=== PATIENT | male | born 1970 | race Caucasian/White ===

== ENCOUNTER 2017-09-19 02:00 | Observation (INO) | payer OTHER ==
[2017-09-19] MEDS ORDERED: ASPIRIN 81 MG CHEWABLE TABLET ONE (02:19)
[2017-09-19] MEDS ORDERED: CLOPIDOGREL 75 MG TABLET ONE (02:20)
[2017-09-19] MEDS ORDERED: MORPHINE 4 MG/ML SYR ONE (02:20)
[2017-09-19] MEDS ORDERED: PANTOPRAZOLE 40 MG INJ ONE (02:20)
[2017-09-19] MEDS ORDERED: NA CHLORIDE 0.9% 1,000 ML ONE (02:20)
[2017-09-19] MEDS ORDERED: HEPARIN 5000 UNIT/ML 1 ML VIAL ONE (02:24)
[2017-09-19] MEDS ORDERED: HEPARIN/D5W 25,000 UNIT/500 ML BAG IV ONE (02:25)
[2017-09-19] MEDS ORDERED: ONDANSETRON 4 MG/2 ML VIAL ONE (02:26)
[2017-09-19 02:31] LABS: Absolute Lymphocytes (CBC) 2.5 K/uL (0.7-4.9); Absolute Monocytes 0.5 K/uL (0.1-1.3); Absolute Neutrophil 2.2 K/uL (1.8-8.0); Basophils % 0.7 % (0-1.3); Eosinophils % 5.4 % (0-4.4); Hematocrit 39.9 % (39.6-49.0); Lymphocytes % 45.1 % (15.3-44.8); MCV 87.3 fL (80-100); MPV 8.2 fL (7.6-11.3); Monocytes % 9.7 % (3.3-12.3); RBC Red Blood Cell Count 4.56 M/uL (4.33-5.43)
[2017-09-19 02:35] LABS: Protime INR 1.01
[2017-09-19 03:02] LABS: Potassium 3.7 mEq/L (3.6-5.0)
[2017-09-19 03:08] LABS: Albumin 3.6 g/dL (3.2-5.5); Bilirubin Direct 0.1 mg/dL (0-0.2); Bilirubin Total 0.8 mg/dL (0.3-1.2); Magnesium 1.9 mg/dL (1.8-2.5); Protein, Total 5.8 g/dL (6.0-8.3)
--- NOTE | 2017-09-19 03:14 | ER ---
Nurse's Notes [facility] Name: Al Duffy Age: 47 yrs Sex: Male : 1970 Arrival Date: 09/19/2017 Time: 02:07 Bed 3 Private MD: Nathen Coello Diagnosis: Other chest pain;Bradycardia, unspecified;Dyspnea Presentation: 09/19 02:07 Presenting complaint: EMS states: that upon their arrival to pts home pt had heart rate fc of 35 and bp of 72/42, was also having chest pressure, was pale and diaphoretic. Pt given Atropine which increased heart rate of 75 and bp to 103/70. Transition of care: patient was not received from another setting of care. Onset of symptoms was September 19, 2017 at 01:15. Initial Sepsis Screen: Does the patient meet any 2 criteria? No. Patient's initial sepsis screen is negative. Does the patient have a suspected source of infection? No. Patient's initial sepsis screen is negative. Care prior to arrival: Medication(s) given: Normal saline infusion, 900 ml Atropine 1 mg IV initiated. 18 GA, in the right antecubital area. 02:07 Method Of Arrival: EMS: [facility] 02:07 Acuity: ETHEL 2 fc Historical: - Allergies: 02:20 No Known Allergies; fc - Home Meds: 02:20 gabapentin 600 mg oral tab 4 tab nightly [Active]; lisinopril 20 mg oral tab 1 tab once fc daily [Active]; Crestor 10 mg oral tab 1 tab nightly [Active]; Mitigare 0.6 mg oral cap as needed [Active]; naproxen 500 mg Oral tab 1 tab bid prn [Active]; - PMHx: 02:20 High Cholesterol; Hypertension; Kidney stones; Gout; fc - PSHx: 02:20 foot surg; fc - Immunization history:: Last tetanus immunization: up to date. - Social history:: Smoking status: Patient/guardian denies using tobacco, Patient uses alcohol, but reports only rare drinking. - Family history:: not pertinent. Screenin:07 Abuse screen: Denies threats or abuse. Nutritional screening: No deficits noted. fc Tuberculosis screening: No symptoms or risk factors identified. Fall Risk None identified. Assessment: 02:38 General: Appears in no apparent distress. Behavior is calm, cooperative. Pain: mg2 Complains of pain in chest Pain does not radiate. Pain Quality of pain is described as aching, Pain began Is Alleviated by medications, Noted to be. Neuro: Level of Consciousness is awake, alert, obeys commands, Oriented to person, place, time, situation. Cardiovascular: Capillary refill < 3 seconds Patient's skin is warm and dry. Respiratory: Airway is patent Respiratory effort is even, unlabored, Respiratory pattern is regular, symmetrical. GI: No signs and/or symptoms were reported involving the gastrointestinal system. : No signs and/or symptoms were reported regarding the genitourinary system. EENT: No signs and/or symptoms were reported regarding the EENT system. Derm: Skin is intact, Skin is pink, warm \T\ dry. normal. Musculoskeletal: No signs and/or symptoms reported regarding the musculoskeletal system. 03:30 Reassessment: Patient appears in no apparent distress at this time. Patient and/or aa1 family updated on plan of care and expected duration. Pain level reassessed. Patient is alert, oriented x 3, equal unlabored respirations, skin warm/dry/pink. Patient denies pain at this time. Patient states feeling better. 05:00 Reassessment: Patient appears in no apparent distress at this time. Patient and/or aa1 family updated on plan of care and expected duration. Pain level reassessed. Patient is alert, oriented x 3, equal unlabored respirations, skin warm/dry/pink. Pt to be admitted to ICU and will be ER hold at this time. Vital Signs: 02:07 BP 123 / 85; Pulse 81; Resp 18; Temp 97.6(O); Pulse Ox 100% on R/A; Weight 102.06 kg fc (R); Height 6 ft. 7 in. (200.66 cm) (R); Pain 5/10; 02:16 BP 117 / 86 LA; mt 02:16 BP 123 / 85 RA; mt 02:27 BP 124 / 84; Pulse 65; Resp 14; Pulse Ox 100% on R/A; mt 03:16 BP 123 / 80; Pulse 62; Resp 18; Pulse Ox 100% ; Pain 2/10; mg2 03:57 BP 120 / 80; Pulse 57; Resp 18; Pulse Ox 100% on R/A; Pain 0/10; mg2 02:07 Body Mass Index 25.35 (102.06 kg, 200.66 cm) fc ED Course: 02:07 Patient arrived in ED. am2 02:07 Arm band placed on Patient placed in an exam room, on a stretcher. fc 02:07 Patient has correct armband on for positive identification. Placed in gown. Bed in low fc position. Call light in reach. Side rails up X 1. traffic monitor specialist on. Pulse ox on. NIBP on. 02:07 Maintain EMS IV. Dressing intact. Good blood return noted. Site clean \T\ dry. Gauge \T\ fc site: 18 gauge to right a/c. 02:08 Nathen Coello MD is Private Physician. am2 02:09 Omari Hooper MD is Attending Physician. esha 02:10 EKG done, by ED staff, reviewed by Omari Hooper MD. fc 02:15 Triage completed. fc 02:21 X-ray completed. Portable x-ray completed in exam room. Patient tolerated procedure kw well. 02:23 XRAY Chest (1 view) In Process Unspecified. EDMS 02:34 Geo Zuniga, MEET is Primary Nurse. mg2 02:40 Patient maintains SpO2 saturation greater than 95% on room air. mg2 03:13 Charlene Canales MD is Hospitalizing Provider. esha 03:17 No provider procedures requiring assistance completed. mg2 03:34 CT Aorta for Dissection In Process Unspecified. EDMS 04:23 Ckmb Sent. ak1 04:23 Creatine Phosphokinase Sent. ak1 04:23 Troponin (emerg Dept Use Only) Sent. ak1 04:23 Repeat lab(s) drawn. by ut, sent to lab. Inserted saline lock: 20 gauge in left ak1 antecubital area, using aseptic technique. Blood collected. 07:08 Primary Nurse role handed off by Geo Zuniga, MEET tw2 07:08 Susie Goodson RN is Primary Nurse. tw2 08:00 Patient admitted, IV remains in place. tw2 Administered Medications: 02:35 Drug: ProTONIX 40 mg Route: IVP; Site: right antecubital; mg2 03:23 Follow up: Response: No adverse reaction; Pain is decreased mg2 02:35 Drug: PlaVIX 600 mg Route: PO; mg2 03:23 Follow up: Response: No adverse reaction mg2 02:35 Drug: morphine 4 mg Route: IVP; Site: right antecubital; mg2 03:22 Follow up: Response: No adverse reaction; Pain is decreased mg2 02:35 Drug: Zofran 4 mg Route: IVP; Site: right antecubital; mg2 03:22 Follow up: Response: No adverse reaction; Nausea is decreased mg2 02:36 Drug: Heparin ([place]-Bolus No thrombolytic) - HEParin 60 units/kg {Co-Signature: aa1 mg2 (Arabella Ballesteros RN).} Route: IVP; Site: right antecubital; 03:24 Follow up: Response: No adverse reaction mg2 02:37 Drug: NS 0.9% 1000 ml Route: IV; Rate: 1 bolus; Site: right antecubital; mg2 03:24 Follow up: Response: No adverse reaction; IV Status: Completed infusion mg2 02:37 Drug: Heparin ([place] Drip) 12 units/kg/hr - (HEParin 39316 units, D5W 500 ml) mg2 {Co-Signature: aa1 (Arabella Ballesteros RN).} Route: IV; Rate: calculated rate; Site: right antecubital; 02:47 Not Given (received by EMS): Aspirin Chewable Tablet 324 mg PO once; 81 mg tablets x 4 aa1 Outcome: 03:13 Decision to Hospitalize by Provider. esha 05:00 Admitted to ER Hold. Please see [facility] for further documentation. aa1 08:00 Condition: stable tw2 08:00 Instructed on the need for admit. 08:15 Patient left the ED. sv Signatures: Dispatcher [employer] Alyssa Anna RN RN sv Kern, Alissa RN RN aa1 Omari Hooper MD MD cha Chretien, Felicia RN Harmony Arellano Amber, RN RN Susie Robbins RN RN tw2 [facility] Geo Zuniga RN RN mg2 Arabella Ballesteros RN aa1 Corrections: (The following items were deleted from the chart) 02:19 02:16 BP 132 / 85 R Arm; mt mt 03:22 03:16 BP 123 / 80; Pulse 62bpm; Resp 18bpm; Pulse Ox 100%; mg2 mg2
--- NOTE | 2017-09-19 03:14 | EDPHYS ---
Physician Documentation [facility] Name: Al Duffy Age: 47 yrs Sex: Male : 1970 Arrival Date: 09/19/2017 Time: 02:07 Bed 3 Private MD: Nathen Coello ED Physician Omari Hooper HPI: 09/19 02:12 This 47 yrs old Male presents to ER via Unassigned with complaints of Chest esha Pain. 02:12 This 47 yrs old Male presents to ER via Unassigned with complaints of Chest esha Pain. 02:12 The patient or guardian reports chest pain that is located primarily in the substernal esha area, anterior chest wall. Onset: just prior to arrival. The pain does not radiate. Associated signs and symptoms: Pertinent positives: nausea, shortness of breath. The chest pain is described as a heaviness, a pressure. Duration: The patient or guardian reports a single episode, that is still ongoing. Modifying factors: The symptoms are alleviated by nothing. the symptoms are aggravated by nothing. Severity of pain: At its worst the pain was moderate severe in the emergency department the pain has improved moderately. The patient has not experienced similar symptoms in the past. Historical: - Allergies: 02:20 No Known Allergies; fc - Home Meds: 02:20 gabapentin 600 mg oral tab 4 tab nightly [Active]; lisinopril 20 mg oral tab 1 tab once fc daily [Active]; Crestor 10 mg oral tab 1 tab nightly [Active]; Mitigare 0.6 mg oral cap as needed [Active]; naproxen 500 mg Oral tab 1 tab bid prn [Active]; - PMHx: 02:20 High Cholesterol; Hypertension; Kidney stones; Gout; fc - PSHx: 02:20 foot surg; fc - Immunization history:: Last tetanus immunization: up to date. - Social history:: Smoking status: Patient/guardian denies using tobacco, Patient uses alcohol, but reports only rare drinking. - Family history:: not pertinent. ROS: 02:12 Constitutional: Negative for fever, chills, and weight loss, Eyes: Negative for injury, esha pain, redness, and discharge, ENT: Negative for injury, pain, and discharge, Neck: Negative for injury, pain, and swelling, Abdomen/GI: Negative for abdominal pain, nausea, vomiting, diarrhea, and constipation, Back: Negative for injury and pain, : Negative for injury, bleeding, discharge, and swelling, MS/Extremity: Negative for injury and deformity, Skin: Negative for injury, rash, and discoloration, Neuro: Negative for headache, weakness, numbness, tingling, and seizure, Psych: Negative for depression, anxiety, suicide ideation, homicidal ideation, and hallucinations, Allergy/Immunology: Negative for hives, rash, and allergies, Endocrine: Negative for neck swelling, polydipsia, polyuria, polyphagia, and marked weight changes, Hematologic/Lymphatic: Negative for swollen nodes, abnormal bleeding, and unusual bruising. 02:12 Cardiovascular: Positive for chest pain. 02:12 Respiratory: Positive for shortness of breath. Exam: 02:12 Constitutional: This is a well developed, well nourished patient who is awake, alert, esha and in no acute distress. Head/Face: Normocephalic, atraumatic. Eyes: Pupils equal round and reactive to light, extra-ocular motions intact. Lids and lashes normal. Conjunctiva and sclera are non-icteric and not injected. Cornea within normal limits. Periorbital areas with no swelling, redness, or edema. ENT: Nares patent. No nasal discharge, no septal abnormalities noted. Tympanic membranes are normal and external auditory canals are clear. Oropharynx with no redness, swelling, or masses, exudates, or evidence of obstruction, uvula midline. Mucous membranes moist. Neck: Trachea midline, no thyromegaly or masses palpated, and no cervical lymphadenopathy. Supple, full range of motion without nuchal rigidity, or vertebral point tenderness. No Meningismus. Chest/axilla: Normal chest wall appearance and motion. Nontender with no deformity. No lesions are appreciated. Cardiovascular: Regular rate and rhythm with a normal S1 and S2. No gallops, murmurs, or rubs. Normal PMI, no JVD. No pulse deficits. Respiratory: Lungs have equal breath sounds bilaterally, clear to auscultation and percussion. No rales, rhonchi or wheezes noted. No increased work of breathing, no retractions or nasal flaring. Abdomen/GI: Soft, non-tender, with normal bowel sounds. No distension or tympany. No guarding or rebound. No evidence of tenderness throughout. Back: No spinal tenderness. No costovertebral tenderness. Full range of motion. Male : Normal genitalia with no discharge or lesions. Skin: Warm, dry with normal turgor. Normal color with no rashes, no lesions, and no evidence of cellulitis. MS/ Extremity: Pulses equal, no cyanosis. Neurovascular intact. Full, normal range of motion. Neuro: Awake and alert, GCS 15, oriented to person, place, time, and situation. Cranial nerves II-XII grossly intact. Motor strength 5/5 in all extremities. Sensory grossly intact. Cerebellar exam normal. Normal gait. Psych: Awake, alert, with orientation to person, place and time. Behavior, mood, and affect are within normal limits. Vital Signs: 02:07 BP 123 / 85; Pulse 81; Resp 18; Temp 97.6(O); Pulse Ox 100% on R/A; Weight 102.06 kg fc (R); Height 6 ft. 7 in. (200.66 cm) (R); Pain 5/10; 02:16 BP 117 / 86 LA; mt 02:16 BP 123 / 85 RA; mt 02:27 BP 124 / 84; Pulse 65; Resp 14; Pulse Ox 100% on R/A; mt 03:16 BP 123 / 80; Pulse 62; Resp 18; Pulse Ox 100% ; Pain 2/10; mg2 03:57 BP 120 / 80; Pulse 57; Resp 18; Pulse Ox 100% on R/A; Pain 0/10; mg2 02:07 Body Mass Index 25.35 (102.06 kg, 200.66 cm) MDM: 02:09 Patient medically screened. [facility] 02:15 Data reviewed: vital signs, nurses notes, lab test result(s), EKG, radiologic studies, [facility] CT scan, plain films. 09/19 02:11 Order name: Basic Metabolic Panel; Complete Time: 03:41 [facility] 09/19 02:11 Order name: BNP; Complete Time: 03:07 [facility] 09/19 02:11 Order name: CBC with Diff; Complete Time: 03:07 [facility] 09/19 02:11 Order name: Ckmb; Complete Time: 03:41 [facility] 09/19 02:11 Order name: CPK; Complete Time: 03:41 [facility] 09/19 02:11 Order name: LFT's; Complete Time: 03:41 [facility] 09/19 02:11 Order name: Magnesium; Complete Time: 03:41 [facility] 09/19 02:11 Order name: PT-INR; Complete Time: 03:07 [facility] 09/19 02:11 Order name: Ptt, Activated; Complete Time: 03:07 [facility] 09/19 02:11 Order name: Troponin (emerg Dept Use Only); Complete Time: 03:07 [facility] 09/19 02:11 Order name: Lipase; Complete Time: 03:41 [facility] 09/19 04:11 Order name: Ckmb [facility] 09/19 04:11 Order name: Creatine Phosphokinase [facility] 09/19 04:11 Order name: Troponin (emerg Dept Use Only) [facility] 09/19 02:11 Order name: XRAY Chest (1 view) [facility] 09/19 02:25 Order name: CT Aorta for Dissection [facility] 09/19 04:11 Order name: Ckmb [facility] 09/19 04:11 Order name: Creatine Phosphokinase [facility] 09/19 04:11 Order name: Troponin (emerg Dept Use Only) [facility] 09/19 04:53 Order name: Creatine Phosphokinase; Complete Time: 07:09 [facility] 09/19 04:55 Order name: Troponin (Emerg Dept Use Only); Complete Time: 07:09 [facility] 09/19 04:58 Order name: CKMB Creatine Kinase MB; Complete Time: 07:09 [facility] 09/19 05:46 Order name: Ptt, Activated aa1 09/19 06:50 Order name: PTT, Activated Partial Thromb; Complete Time: 07:09 [facility] 09/19 02:11 Order name: EKG; Complete Time: 02:11 [facility] 09/19 02:11 Order name: Cardiac monitoring; Complete Time: 02:17 [facility] 09/19 02:11 Order name: EKG - Nurse/Tech; Complete Time: 02:17 [facility] 09/19 02:11 Order name: IV Saline Lock; Complete Time: 02:17 [facility] 09/19 02:11 Order name: Labs collected and sent; Complete Time: 02:17 [facility] 09/19 02:11 Order name: O2 Per Protocol; Complete Time: 02:17 [facility] 09/19 02:11 Order name: O2 Sat Monitoring; Complete Time: 02:17 [facility] 09/19 02:11 Order name: Urine Dipstick-Ancillary (obtain specimen); Complete Time: 02: [facility] 09/19 02:11 Order name: Bilateral blood pressure; Complete Time: 02:16 [facility] 09/19 03:17 Order name: CONS Physician Consult [facility] 09/19 03:25 Order name: EKG; Complete Time: 03:25 [facility] 09/19 03:25 Order name: EKG - Nurse/Tech; Complete Time: 03:56 [facility] 09/19 04:11 Order name: Repeat Cardiac Enzymes at; Complete Time: 04:23 esha Administered Medications: 02:35 Drug: ProTONIX 40 mg Route: IVP; Site: right antecubital; mg2 03:23 Follow up: Response: No adverse reaction; Pain is decreased mg2 02:35 Drug: PlaVIX 600 mg Route: PO; mg2 03:23 Follow up: Response: No adverse reaction mg2 02:35 Drug: morphine 4 mg Route: IVP; Site: right antecubital; mg2 03:22 Follow up: Response: No adverse reaction; Pain is decreased mg2 02:35 Drug: Zofran 4 mg Route: IVP; Site: right antecubital; mg2 03:22 Follow up: Response: No adverse reaction; Nausea is decreased mg2 02:36 Drug: Heparin ([place]-Bolus No thrombolytic) - HEParin 60 units/kg {Co-Signature: aa1 mg2 (Arabella Ballesteros RN).} Route: IVP; Site: right antecubital; 03:24 Follow up: Response: No adverse reaction mg2 02:37 Drug: NS 0.9% 1000 ml Route: IV; Rate: 1 bolus; Site: right antecubital; mg2 03:24 Follow up: Response: No adverse reaction; IV Status: Completed infusion mg2 02:37 Drug: Heparin ([place] Drip) 12 units/kg/hr - (HEParin 73698 units, D5W 500 ml) mg2 {Co-Signature: aa1 (Arabella Ballesteros RN).} Route: IV; Rate: calculated rate; Site: right antecubital; 02:47 Not Given (received by EMS): Aspirin Chewable Tablet 324 mg PO once; 81 mg tablets x 4 aa1 Disposition: 09/19/17 03:13 Hospitalization ordered by Charlene Canales for Inpatient Admission. Preliminary diagnosis are Other chest pain, Bradycardia, unspecified, Dyspnea. - Bed requested for Intensive Care Unit. - Status is Inpatient Admission. sv - Condition is Stable. - Problem is new. - Symptoms have improved. UTI on Admission? No Signatures: Dispatcher [employer] EDMS Kay Camacho rg2 Alyssa Jones RN MEET Omari Hooper MD MD cha Chretien, Felicia, RN RN Whit Sandoval Michele, RN RN [facility] Arabella Ballesteros RN aa1 Arabella Ballesteros RN aa1 Corrections: (The following items were deleted from the chart) 03:24 03:13 Hospitalization Ordered by Charlene Canales MD for Observation. Preliminary [facility] diagnosis is Other chest pain; Bradycardia, unspecified; Dyspnea. Bed requested for Telemetry/MedSurg (Inpatient). Status is Observation. Condition is Stable. Problem is new. Symptoms have improved. UTI on Admission? No. esha 04:58 03:24 09/19/2017 03:13 Hospitalization Ordered by Charlene Canales MD for Inpatient rg2 Admission. Preliminary diagnosis is Other chest pain; Bradycardia, unspecified; Dyspnea. Bed requested for Intensive Care Unit. Status is Inpatient Admission. Condition is Stable. Problem is new. Symptoms have improved. UTI on Admission? No. esha 07:44 04:58 09/19/2017 03:13 Hospitalization Ordered by Charlene Canales MD for Inpatient ag Admission. Preliminary diagnosis is Other chest pain; Bradycardia, unspecified; Dyspnea. Bed requested for [facility] ER HOLD. Status is Inpatient Admission. Condition is Stable. Problem is new. Symptoms have improved. UTI on Admission? No. rg2 08:15 07:44 09/19/2017 03:13 Hospitalization Ordered by Charlene Canales MD for Inpatient sv Admission. Preliminary diagnosis is Other chest pain; Bradycardia, unspecified; Dyspnea. Bed requested for Intensive Care Unit. Status is Inpatient Admission. Condition is Stable. Problem is new. Symptoms have improved. UTI on Admission? No. ag
[2017-09-19 03:25] LABS: CKMB Creatine Kinase MB 1.3 ng/ml (0.3-4.0)
[2017-09-19] MEDS ORDERED: ACETAMINOPHEN 500 MG TAB PO PRN (04:47)
[2017-09-19] MEDS ORDERED: MORPHINE 4 MG/ML SYR IV PRN (04:47)
[2017-09-19] MEDS ORDERED: ONDANSETRON 4 MG/2 ML VIAL IV PRN (04:47)
[2017-09-19 04:58] LABS: CKMB Creatine Kinase MB 1.2 ng/ml (0.3-4.0)
[2017-09-19] MEDS ORDERED: HEPARIN/D5W 25,000 UNIT/500 ML BAG IV SCH (05:00)
[2017-09-19 05:17] VITALS: BMI 25.3
--- NOTE | 2017-09-19 05:50 | P.HP ---
Certification for Inpatient Patient admitted to: Inpatient With expected LOS: >2 Midnights Patient will require the following post-hospital care: None Practitioner: I am a practitioner with admitting privileges, knowledge of patient current condition, hospital course, and medical plan of care. Services: Services provided to patient in accordance with Admission requirements found in Title 42 Section 412.3 of the Code of Federal Regulations Patient History Date of Service: 09/19/17 Reason for admission: Chest pain/Tristan arrhythmia/ Q-waves in the inferior leads History of Present Illness: Patient is a 47-year-old gentleman who came into the hospital with chest pressure. patient has been having chest pressure for the last few hr. Patient was not feeling any better plan he told his that he felt like this was a heart attack. EMS was called and his initial heart rate was in the 30s. His blood pressure was 70/40. Patient was given atropine in that the ambulance. Patient was brought her to our hospital for further evaluation. Patient states he has a history of hypertension and dyslipidemia but denies any other medical problems. Patient states his chest pain has resolved. He remains bradycardic but his blood pressure has stabilized. He will need to be evaluated in the intensive care unit. Patient will be admitted to the hospital ICU for further evaluation. Allergies No Known Allergies Allergy (Unverified 09/19/17 04:52) Home Medications: Aspirin [Aspir-Low] 81 mg PO BEDTIME 09/19/17 Gabapentin 3 tab PO BEDTIME 09/19/17 Lisinopril [Prinivil*] 20 mg PO BEDTIME 09/19/17 Naproxen [Naprosyn] 500 mg PO BID PRN 09/19/17 Rosuvastatin Calcium 10 mg PO BEDTIME 09/19/17 - Past Medical/Surgical History Has patient received pneumonia vaccine in the past: Yes Diabetic: No -: high cholesterol -: gout -: hypertension -: kidney stone -: foot surg - Family History Father Family History: Reviewed- Non-Contributory - Social History Smoking Status: Never smoker Alcohol use: Yes CD- Drugs: No Caffeine use: Yes Place of Residence: Home Review of Systems 10-point ROS is otherwise unremarkable Physical Examination - Vital Signs Temperature: 98 F Blood Pressure: 108/71 Pulse: 52 Respirations: 18 Pulse Ox (%): 98 - Physical Exam General: Alert, In no apparent distress, Oriented x3 HEENT: Atraumatic, PERRLA, Mucous membr. moist/pink, EOMI, Sclerae nonicteric Neck: Supple, 2+ carotid pulse no bruit, No LAD, Without JVD or thyroid abnormality Respiratory: Clear to auscultation bilaterally, Normal air movement Cardiovascular: Regular rate/rhythm, Normal S1 S2, No murmurs Gastrointestinal: Normal bowel sounds, Soft and benign, Non-distended, No tenderness Musculoskeletal: No tenderness Integumentary: No rashes Neurological: Normal gait, Normal speech, Normal strength at 5/5 x4 extr, Normal tone, Sensation intact, Cranial nerves 3-12 intact, Normal affect Lymphatics: No axilla or inguinal lymphadenopathy - Studies Laboratory Data (last 24 hrs) 09/19/17 02:10: PT 11.9, INR 1.01, APTT 25.6 09/19/17 02:10: WBC 5.6, Hgb 13.2 L, Hct 39.9, Plt Count 226 09/19/17 02:10: B-Natriuretic Peptide 31 09/19/17 02:10: Sodium 142, Potassium 3.7, BUN 16, Creatinine 0.96, Glucose 111 , Magnesium 1.9, Total Bilirubin 0.8, AST 29, ALT 25, Alkaline Phosphatase 120, Lipase 17 L Assessment & Plan - Problems (Diagnosis) (1) Bradyarrhythmia Current Visit: Yes Status: Acute (2) Hypotension Current Visit: Yes Status: Acute (3) Acute Q wave myocardial infarction of inferior wall Current Visit: Yes Status: Acute (4) HTN (hypertension) Current Visit: Yes Status: Acute (5) Dyslipidemia Current Visit: Yes Status: Acute - Plan 1. Serial troponins and EKG 2. Monitor blood pressure closely 3. Echocardiogram and other intervention per Cardiology 4. Anti-platelet therapy, anti coagulation, beta-ainsley, statin, and O2 as needed 5. IV morphine for pain 6. thyroid studies along with cortisol level for 7. Cardiology consultation - Advance Directives Does patient have a Living Will: Yes Does patient have a Durable POA for Healthcare: Yes - Code Status/Comfort Care Code Status Assessed: Yes Code Status: Full Code Critical Care: No Time Spent Managing PTS Care (In Minutes): 2
--- NOTE | 2017-09-19 06:37 | EKG ---
Test Date: 2017-09-19 Test Time: 03:53:29 Traffic Engineering Director: TAMIKO MEASUREMENT RESULTS: Intervals: Rate: 58 [place]: 180 QRSD: 90 QT: 428 QTc: 420 [place]: P: 53 [place]: 180 QRS: 69 T: 56 INTERPRETIVE STATEMENTS: Sinus bradycardia Otherwise normal ECG Compared to ECG 09/19/2017 02:09:58 Sinus rhythm no longer present Electronically Signed On 09-19-17 06:36:55 CDT by Tom Pearson
--- NOTE | 2017-09-19 06:38 | EKG ---
Test Date: 2017-09-19 Test Time: 02:09:58 [employer] Manager: TAMIKO MEASUREMENT RESULTS: Intervals: Rate: 77 [place]: 178 QRSD: 76 QT: 394 QTc: 445 [place]: P: 34 [place]: 178 QRS: 65 T: 49 INTERPRETIVE STATEMENTS: Normal sinus rhythm Normal ECG No previous ECG available for comparison Electronically Signed On 09-19-17 06:38:22 CDT by Tom Pearson
[2017-09-19] MEDS ORDERED: POTASSIUM 25 MEQ EFFERV TAB PO ONE (07:34)
[2017-09-19] MEDS ORDERED: POTASSIUM 25 MEQ EFFERV TAB ONE (07:56)
[2017-09-19] MEDS ORDERED: Morphine 2 MG/2 ML SYR IV PRN (08:06)
[2017-09-19 08:21] VITALS: O2SAT 100
--- NOTE | 2017-09-19 08:40 | RAD REPORT ---
EXAM DESCRIPTION: CT - Angio Aorta For Dissection - 09/19/2017 5:36 am CLINICAL HISTORY: Chest pain radiating to the back. COMPARISON: 05/24/2016, 12/17/2014 TECHNIQUE: CT angiography of the aorta was performed with volume rendering. All CT scans are performed using dose optimization technique as appropriate and may include automated exposure control or mA/KV adjustment according to patient size. FINDINGS: A left aortic arch is present with normal branching pattern of the great vessels.No acute aortic finding is seen such as aneurysm, penetrating ulcer or dissection. The celiac axis, SMA, BLAKE and renal arteries are widely patent. No evidence of pulmonary embolism. The lungs are emphysematous but clear. Mildly heterogenous appearance to the liver parenchyma noted.The spleen, pancreas, adrenal glands and kidneys are within normal limits for arterial phase imaging. No bowel obstruction, free fluid or abscess.Colonic diverticulosis coli.No pathologic enlarged lympha denopathy identified. No fracture or worrisome bone lesion seen. IMPRESSION: No acute aortic finding is demonstrated.
--- NOTE | 2017-09-19 08:49 | RAD REPORT ---
EXAM DESCRIPTION: RAD - Chest Single View - 09/19/2017 2:25 am CLINICAL HISTORY: Chest pain. COMPARISON: None. FINDINGS: Portable technique limits examination quality. The lungs are grossly clear. The heart is normal in size. No displaced fractures. IMPRESSION: No acute intrathoracic process suspected.
[2017-09-19] MEDS ORDERED: ASPIRIN 325 MG TAB PO SCH (09:00)
[2017-09-19] MEDS ORDERED: CLOPIDOGREL 75 MG TABLET PO SCH (09:00)
[2017-09-19 12:46] LABS: Thyroid Stimulating Hormone 1.72 uIU/mL (0.34-5.60)
--- NOTE | 2017-09-19 13:09 | ECHO ---
HEIGHT: 6 ft 7 in WEIGHT: 225 lb 0 oz DATE OF STUDY: 09/19/[address]: Charlene Canales MD 2-DIMENSIONAL: YES M.MODE: YES DOPPLER: YES COLOR FLOW: YES TDS: NO PORTABLE: NO DEFINITY: NO BUBBLE STUDY: NO DIAGNOSIS: ANTERIOR MYOCARDIAL INFARCTION CARDIAC HISTORY: CATHERIZATION: NO SURGERY: NO PROSTHETIC VALVE: NO PACEMAKER: NO MEASUREMENTS (cm) DIASTOLIC (NORMALS) SYSTOLIC (NORMALS) IVSd 1.2 (0.6-1.2) LA Diam 3.9 (1.9-4.0) LVEF 63% LVIDd 4.5 (3.5-5.7) LVIDs 3.0 (2.0-3.5) %FS 34% LVPWd 0.9 (0.6-1.2) Ao Diam 2.9 (2.0-3.7) 2 DIMENSIONAL ASSESSMENT: RIGHT ATRIUM: NORMAL LEFT ATRIUM: NORMAL RIGHT VENTRICLE: NORMAL LEFT VENTRICLE: NORMAL TRICUSPID VALVE: NORMAL MITRAL VALVE: NORMAL PULMONIC VALVE: NORMAL AORTIC VALVE: NORMAL PERICARDIAL EFFUSION: NONE AORTIC ROOT: NORMAL LEFT VENTRICULAR WALL MOTION: NORMAL DOPPLER/COLOR FLOW: NORMAL COMMENTS: NORMAL 2D ECHOCARDIOGRAM WITH DOPPLER. NO WALL MOTION ABNORMALITY. NO EFFUSION. TECHNOLOGIST: Maikol HERNANDEZ
[2017-09-19 14:51] VITALS: BP 105/70
[2017-09-19 14:53] VITALS: TEMP 98.2
[2017-09-19] MEDS ORDERED: ATORVASTATIN 20 MG TAB PO SCH (21:00)
[2017-09-20] MEDS ORDERED: PANTOPRAZOLE 40MG TABLET PO SCH (06:30)
--- NOTE | 2017-09-20 11:28 | CON ---
Date of Consultation: 09/19/2017 Admitted on 09/19/2017 and he was seen on 09/19/2017. Reason For Consultation: Chest pain. History Of Present Illness: Mr. Duffy is a 47-year-old white male with a history of hypertension, dy slipidemia, kidney stones, and gout. He sees Dr. Nathen Coello usually. Apparently, he had an episod e of chest pain, hypotension, bradycardia, heart rate of 45, systolic blood pressure of 70 that woke him up from sleep. He apparently has lost approximately 40 pounds in the last 2 months and continues to take his medication including aspirin, Prinivil, Crestor, and Neurontin. He became pain-free, re mained with a blood pressure about 100. No other symptoms of fevers or chills or cough. His CPKs, M Bs, troponin, and BNP were all negative. An echocardiogram is negative. The patient is feeling much better now. Past Medical History: As stated above. Allergies: NONE. Review of Systems: Negative. Social History: Negative. Family History: Noncontributory. Physical Examination: Vital Signs: Stable. He was afebrile. HEENT: Negative. Neck: Supple with no bruit. Chest: Clear. Cardiac: Revealed a regular rhythm and rate without any murmurs, gallops, or rubs. Abdomen: Benign. Extremities: Revealed no clubbing, cyanosis, or edema. Diagnostic Data: As stated above. Impression And Plan: Episode of hypotension and bradycardia, certainly could be a vagal reaction or reaction to medication. The patient has lost 40 pounds and feels like the Prinivil and the Neurontin may have affected his blood pressure and heart rate considering his weight loss. He has ruled out c ompletely. He has a running heart rate in the 60s with normal blood pressure. Has a normal echocard iogram and ruled out for any cardiac issues, and I would feel comfortable with him going home and hav e him do an outpatient stress test. I would definitely have his Prinivil held for now. I will discu ss the Crestor after some blood work is done. I will make sure he gets a lipid profile done before h e leaves the hospital. NICOLE/LUCINAL Voice ID: [id number] Report ID: [id number]
== END 2017-09-19 13:30 | disposition home or self-care (01) ==
LOC: ER 02:00 → INTOOBSV 03:43 → ERHOLD 03:43 → 3RD-ICU 08:34
PROVIDERS: ADMIT Hospitalist; ATTEND Hospitalist
DX: R07.9 Chest pain, unspecified (principal); I49.8 Other specified cardiac arrhythmias; I95.9 Hypotension, unspecified; I10 Essential (primary) hypertension; M10.9 Gout, unspecified; Z87.442 Personal history of urinary calculi; Z79.82 Long term (current) use of aspirin
CPT/HCPCS: 36415; 71045; 71275; 74175; 80048; 80061; 80076; 82550; 82553; 83690; 83735; 83880; 84100; 84439; 84443; 84484; 85025; 85610; 85730; 93005; 93306; 96361; 96374; 96375; 99285; C9113; G0378; J1644; J2405; J7030; Q9967

== ENCOUNTER 2021-11-30 15:50 | Emergency (ER) | payer OTHER ==
[2021-11-30] MEDS ORDERED: MORPHINE 4 MG/ML SYR ONE (16:42)
[2021-11-30] MEDS ORDERED: FAMOTIDINE 20 MG/2 ML VIAL IV ONE (16:42)
[2021-11-30] MEDS ORDERED: NA CHLORIDE 0.9% 1,000 ML ONE (16:42)
[2021-11-30] MEDS ORDERED: ONDANSETRON 4 MG/2 ML VIAL ONE (16:42)
[2021-11-30 16:47] LABS: Absolute Lymphocytes (CBC) 2.1 K/uL (0.7-4.9); Hematocrit 51.9 % (39.6-49.0); MCV 87.7 fL (80-100); MPV 7.6 fL (7.6-11.3); RBC Red Blood Cell Count 5.91 M/uL (4.33-5.43)
[2021-11-30 17:05] LABS: Bilirubin Total 1.6 mg/dL (0.2-1.0); Potassium 4.4 mmol/L (3.5-5.1); Protein, Total 7.5 g/dL (6.4-8.2)
--- NOTE | 2021-11-30 17:45 | RAD REPORT ---
EXAM DESCRIPTION: RAD - Chest Single View - 11/30/2021 5:13 pm CLINICAL HISTORY: epigastric pain COMPARISON: Chest Single View dated 09/19/2017; Abdomen Pelvis W Contrast dated 11/30/2021 FINDINGS: Lines: None. Lungs: No evidence of edema or pneumonia. Pleural: No significant pleural effusions or pneumothorax. Cardiac: The heart size is within normal limits. Bones: No acute fractures. Other: IMPRESSION: No acute cardiopulmonary disease.
--- NOTE | 2021-11-30 17:57 | RAD REPORT ---
EXAM DESCRIPTION: CTAbdomen Pelvis W Contrast - 11/30/2021 5:37 pm CLINICAL HISTORY: Epigastric pain COMPARISON: No comparisons TECHNIQUE: CT of the abdomen and pelvis was performed. All CT scans are performed using dose optimization technique as appropriate and may include automated exposure control or mA/KV adjustment according to patient size. FINDINGS: Lower chest: No acute abnormality. Liver: No acute abnormality or suspicious lesions. Biliary: Sludge versus noncalcified stones in the gallbladder. Stomach: No significant focal abnormality. Duodenum: No significant focal abnormality. Pancreas: No significant abnormality. Spleen: No significant abnormality. Adrenal: No suspicious lesions. Kidney/ureter: No hydronephrosis. Small nonobstructing stones bilaterally. Too small to characterize and/or benign appearing renal lesions are noted. Retroperitoneum: No retroperitoneal adenopathy. Vascular: No aneurysm. Bowel: No significant focal abnormality. Normal appendix . Peritoneum: No ascites or free air. Small fat containing umbilical hernia. Bladder: Grossly unremarkable. Reproductive: No adnexal masses. Bones: No acute fracture. Other: n/a IMPRESSION: No acute intra-abdominal or pelvic finding. Normal appendix. Sludge versus noncalcified the gallbladder but no pericholecystic inflammatory changes. Correlate with LFTs. Nonobstructive bila teral nephrolithiasis.
--- NOTE | 2021-11-30 18:21 | RAD REPORT ---
EXAM DESCRIPTION: US - Abdomen Exam Limited - 11/30/2021 6:14 pm CLINICAL HISTORY: EPIGASTRIC PAIN COMPARISON: Abdomen Pelvis W Contrast dated 11/30/2021 FINDINGS: The gallbladder demonstrates gallstones No pericholecystic fluid or gallbladder wall thick ening. The common bile duct is normal measuring 2 mm. Negative sonographic Scott's sign. The liver demonstrates no findings of intrahepatic biliary dilatation. IMPRESSION: Cholelithiasis but no sonographic evidence of acute cholecystitis.
[2021-11-30] MEDS ORDERED: CEFTRIAXONE 1000 MG/VIAL ONE (19:07)
[2021-11-30] MEDS ORDERED: NA CHLORIDE 0.9% 50 ML ONE (19:07)
--- NOTE | 2021-11-30 19:13 | EDPHYS ---
Physician Documentation [facility] Name: Al Duffy Age: 51 yrs Sex: Male : 1970 Arrival Date: 11/30/2021 Time: 15:51 Bed 6 Private MD: ED Physician Rudi Egan HPI: 11/30 16:20 This 51 yrs old Male presents to ER via Ambulatory with complaints of Abdominal Pain. cp 16:20 The patient presents with abdominal pain in the epigastric area. Onset: The cp symptoms/episode began/occurred today. The symptoms radiate to both shoulders. Associated signs and symptoms: Pertinent positives: nausea, Pertinent negatives: chest pain, constipation, diarrhea, fever, vomiting. The symptoms are described as constant. Severity of pain: in the emergency department the pain is unchanged despite home interventions. The patient has experienced similar episodes in the past, several times, today's symptoms are similar, to when the patient was apparently diagnosed with gallstones. Historical: - Allergies: 16:10 No Known Allergies; hb - Home Meds: 16:10 Crestor 10 mg Oral tab 1 tab nightly [Active]; gabapentin 600 mg Oral tab 4 tab nightly hb [Active]; lisinopril 20 mg Oral tab 1 tab once daily [Active]; Mitigare 0.6 mg Oral cap as needed [Active]; naproxen 500 mg Oral tab 1 tab BID PRN [Active]; - PMHx: 16:10 Gout; High Cholesterol; Hypertension; Kidney stones; hb - Immunization history:: Adult Immunizations up to date. - Social history:: Smoking status: Patient denies any tobacco usage or history of. ROS: 16:25 Constitutional: Negative for body aches, chills, fever, poor PO intake. cp 16:25 Eyes: Negative for injury, pain, redness, and discharge. cp 16:25 ENT: Negative for drainage from ear(s), ear pain, sore throat, difficulty swallowing, difficulty handling secretions. 16:25 Cardiovascular: Negative for chest pain, edema, palpitations. 16:25 Respiratory: Negative for cough, shortness of breath, wheezing. 16:25 Abdomen/GI: Positive for abdominal pain, nausea, Negative for vomiting, diarrhea, constipation. 16:25 Back: Positive for radiated pain, Negative for pain at rest, pain with movement. 16:25 : Negative for urinary symptoms. 16:25 Neuro: Negative for altered mental status, dizziness, headache, syncope, weakness. 16:25 All other systems are negative. Exam: 16:30 Constitutional: The patient appears in no acute distress, alert, awake, cp non-diaphoretic, non-toxic, well developed, well nourished, uncomfortable. 16:30 Head/Face: Normocephalic, atraumatic. cp 16:30 Eyes: Periorbital structures: appear normal, Conjunctiva: normal, no exudate, no injection, Sclera: no appreciated abnormality, Lids and lashes: appear normal, bilaterally. 16:30 ENT: External ear(s): are unremarkable, Nose: is normal, Mouth: Lips: moist, Oral mucosa: moist, Posterior pharynx: Airway: no evidence of obstruction, patent. 16:30 Chest/axilla: Inspection: normal, Palpation: is normal, no crepitus, no tenderness. 16:30 Cardiovascular: Rate: normal, Rhythm: regular. 16:30 Respiratory: the patient does not display signs of respiratory distress, Respirations: normal, no use of accessory muscles, no retractions, labored breathing, is not present, Breath sounds: are clear throughout, no decreased breath sounds, no stridor, no wheezing. 16:30 Abdomen/GI: Inspection: abdomen appears normal, Bowel sounds: active, all quadrants, Palpation: soft, in all quadrants, moderate abdominal tenderness, in the epigastric area. 16:30 Back: CVA tenderness, is absent. 16:30 Neuro: Orientation: to person, place \T\ time. Mentation: is normal, Motor: moves all fours, strength is normal, Sensation: is normal. Vital Signs: 16:09 BP 137 / 81; Pulse 68; Resp 16; Temp 98.7; Pulse Ox 97% on R/A; Weight 103.42 kg; hb Height 6 ft. 7 in. (200.66 cm); Pain 9/10; 17:30 BP 121 / 75; Pulse 64; Resp 16; Pulse Ox 94% ; bp 19:00 BP 130 / 88; Pulse 66; Resp 16; Pulse Ox 97% ; bp 16:09 Body Mass Index 25.68 (103.42 kg, 200.66 cm) hb MDM: 16:14 Patient medically screened. cp 18:42 Physician consultation: Audi Thompson MD was called at 18:42, was contacted at 18:42, regarding consult, patient's condition, and will see patient in office, tomorrow. 18:45 Data reviewed: vital signs, nurses notes, lab test result(s), radiologic studies, CT cp scan, ultrasound. 18:45 Differential diagnosis: cholecystitis, Cholelithiasis, pancreatitis, Peptic Ulcer cp Disease, Perf. Duodenal Ulcer, Perf. Gastric Ulcer. Counseling: I had a detailed discussion with the patient and/or guardian regarding: the historical points, exam findings, and any diagnostic results supporting the discharge/admit diagnosis, lab results, the need for outpatient follow up, for definitive care, a general surgeon, to return to the emergency department if symptoms worsen or persist or if there are any questions or concerns that arise at home. Response to treatment: the patient's symptoms have markedly improved after treatment, and as a result, I will discharge patient. 11/30 16:16 Order name: CBC with Diff; Complete Time: 17:09 11/30 17:09 Interpretation: Normal except: RBC 5.91; HCT 51.9. 11/30 16:16 Order name: CMP; Complete Time: 17:09 11/30 17:10 Interpretation: Normal except: CL 109; GLUC 117; GFR 78; ALK 258; BILIT 1.6; CA 10.4. cp 11/30 16:16 Order name: Lipase; Complete Time: 17:09 11/30 16:16 Order name: Urine Microscopic Only; Complete Time: 22:43 cp 11/30 16:16 Order name: CT Abd/Pelvis - IV Contrast Only; Complete Time: 18:00 11/30 19:25 Order name: Urine Dipstick-Ancillary; Complete Time: 22:43 EDMS 11/30 16:16 Order name: IV Saline Lock; Complete Time: 16:37 cp 11/30 16:16 Order name: XRAY Chest (1 view); Complete Time: 18:00 cp 11/30 18:00 Order name: US Abdomen Limited: RUQ; Complete Time: 18:40 cp 11/30 16:16 Order name: Labs collected and sent; Complete Time: 16:37 cp 11/30 16:16 Order name: Urine Dipstick-Ancillary (obtain specimen); Complete Time: 19:27 cp 11/30 18:37 Order name: PO challenge; Complete Time: 19:03 cp Administered Medications: 16:48 Drug: NS 0.9% 1000 ml Route: IV; Rate: 1 bolus; Site: right antecubital; bm7 19:29 Follow up: Response: No adverse reaction; IV Status: Completed infusion kd3 16:48 Drug: Pepcid (famotidine) 20 mg Route: IVP; Site: right antecubital; bm7 19:14 Follow up: Response: No adverse reaction kd3 16:48 Drug: morphine 4 mg Route: IVP; Infused Over: 4 mins; Site: right antecubital; bm7 18:51 Follow up: Response: No adverse reaction bp 19:13 Follow up: Response: No adverse reaction kd3 16:49 Drug: Zofran (Ondansetron) 4 mg Route: IVP; Site: right antecubital; bm7 19:13 Follow up: Response: No adverse reaction kd3 19:03 Drug: Rocephin (cefTRIAXone) 1 grams Route: IV; Rate: calculated rate; Site: right bp antecubital; 19:13 Follow up: Response: No adverse reaction kd3 19:28 Follow up: Response: No adverse reaction; IV Status: Completed infusion kd3 Disposition: 22:43 Co-signature as Attending Physician, Rudi RODRIGUEZ was immediately available on-site ms3 in the Emergency Department for consultation in the care of the patient.. Disposition Summary: 11/30/21 19:12 Discharge Ordered Location: Home cp Problem: an ongoing problem cp Symptoms: have improved cp Condition: Stable cp Diagnosis - Other cholelithiasis without obstruction cp Followup: cp - With: Audi Thompson MD - When: Tomorrow - Reason: Recheck today's complaints Discharge Instructions: - Discharge Summary Sheet cp - Cholelithiasis cp Forms: - Medication Reconciliation Form cp - Thank You Letter cp - Antibiotic Education cp - Prescription Opioid Use cp Prescriptions: - Augmentin 875-125 mg Oral Tablet - take 1 tablet by ORAL route every 12 hours for 7 days; 14 tablet; Refills: 0, cp Product Selection Permitted - Zofran 4 mg Oral Tablet - take 1 tablet by ORAL route every 12 hours As needed; 20 tablet; Refills: 0, cp Product Selection Permitted - dicyclomine 20 mg Oral Tablet - take 1 tablet by ORAL route 4 times per day As needed; 30 tablet; Refills: 0, cp Product Selection Permitted Signatures: Dispatcher [employer] Omari Bolden PA PA cp Baxter, Heather, RN RN hb Nathen Torres RN RN bp Rudi Egan DO DO ms3 Malia Shine RN RN bm7 Codi Holcomb RN kd3
--- NOTE | 2021-11-30 19:13 | ER ---
Nurse's Notes [facility] Name: Al Duffy Age: 51 yrs Sex: Male : 1970 Arrival Date: 11/30/2021 Time: 15:51 Bed 6 Private MD: Diagnosis: Other cholelithiasis without obstruction Presentation: 11/30 16:09 Chief complaint: Severe upper abdominal pain that radiates to mid back and nausea x 2 hb hours. Hx of cholecystitis. Coronavirus screen: At this time, the client does not indicate any symptoms associated with coronavirus-19. Ebola Screen: No symptoms or risks identified at this time. Risk Assessment: Do you want to hurt yourself or someone else? Patient reports no desire to harm self or others. Onset of symptoms was November 30, 2021. 16:09 Method Of Arrival: Ambulatory hb 16:09 Acuity: ETHEL 3 hb 19:13 Initial Sepsis Screen: Does the patient meet any 2 criteria? No. Patient's initial kd3 sepsis screen is negative. Does the patient have a suspected source of infection? No. Patient's initial sepsis screen is negative. Triage Assessment: 16:10 General: Appears distressed, uncomfortable, Behavior is cooperative, appropriate for bp age, anxious. Pain: Complains of pain in abdomen. EENT: No deficits noted. Neuro: No deficits noted. Cardiovascular: No deficits noted. Respiratory: No deficits noted. GI: Reports upper abdominal pain. : No signs and/or symptoms were reported regarding the genitourinary system. Derm: No deficits noted. Musculoskeletal: No deficits noted. Historical: - Allergies: 16:10 No Known Allergies; hb - Home Meds: 16:10 Crestor 10 mg Oral tab 1 tab nightly [Active]; gabapentin 600 mg Oral tab 4 tab nightly hb [Active]; lisinopril 20 mg Oral tab 1 tab once daily [Active]; Mitigare 0.6 mg Oral cap as needed [Active]; naproxen 500 mg Oral tab 1 tab BID PRN [Active]; - PMHx: 16:10 Gout; High Cholesterol; Hypertension; Kidney stones; hb - Immunization history:: Adult Immunizations up to date. - Social history:: Smoking status: Patient denies any tobacco usage or history of. Screenin:30 Abuse screen: Denies threats or abuse. Denies injuries from another. Nutritional bp screening: No deficits noted. Tuberculosis screening: No symptoms or risk factors identified. Fall Risk None identified. Assessment: 16:10 General: SEE TRIAGE NOTE. bp 17:30 Reassessment: No changes from previously documented assessment. Patient and/or family bp updated on plan of care and expected duration. Pain level reassessed. PT TO CT. 19:00 Reassessment: No changes from previously documented assessment. Patient and/or family bp updated on plan of care and expected duration. Pain level reassessed. 19:12 General: Appears in no apparent distress. Behavior is calm, cooperative. Neuro: Level kd3 of Consciousness is awake, Oriented to person, place, time, situation. Respiratory: Airway is patent Trachea midline Respiratory effort is even, unlabored. 19:13 GI: Bowel sounds Abd is soft. kd3 Vital Signs: 16:09 BP 137 / 81; Pulse 68; Resp 16; Temp 98.7; Pulse Ox 97% on R/A; Weight 103.42 kg; hb Height 6 ft. 7 in. (200.66 cm); Pain 9/10; 17:30 BP 121 / 75; Pulse 64; Resp 16; Pulse Ox 94% ; bp 19:00 BP 130 / 88; Pulse 66; Resp 16; Pulse Ox 97% ; bp 16:09 Body Mass Index 25.68 (103.42 kg, 200.66 cm) hb ED Course: 15:51 Patient arrived in ED. mr 15:53 Omari Sethi PA is PHCP. cp 15:53 Rudi Egan DO is Attending Physician. cp 16:10 Triage completed. hb 16:11 Arm band placed on. hb 16:37 Nathen Torres, MEET is Primary Nurse. bp 16:49 Patient has correct armband on for positive identification. Placed in gown. Bed in low bm7 position. Call light in reach. Adult w/ patient. Client placed on continuous cardiac and pulse oximetry monitoring. NIBP monitoring applied. 16:49 Initial lab(s) drawn, by me, sent to lab. Inserted saline lock: 20 gauge in right bm7 antecubital area, using aseptic technique. Blood collected. 17:15 XRAY Chest (1 view) In Process Unspecified. EDMS 17:39 CT Abd/Pelvis - IV Contrast Only In Process Unspecified. EDMS 18:16 US Abdomen Limited: RUQ In Process Unspecified. EDMS 19:11 Audi Thompson MD is Referral Physician. cp 19:12 No provider procedures requiring assistance completed. kd3 19:28 IV discontinued, intact, bleeding controlled, No redness/swelling at site. Pressure kd3 dressing applied. Administered Medications: 16:48 Drug: NS 0.9% 1000 ml Route: IV; Rate: 1 bolus; Site: right antecubital; bm7 19:29 Follow up: Response: No adverse reaction; IV Status: Completed infusion kd3 16:48 Drug: Pepcid (famotidine) 20 mg Route: IVP; Site: right antecubital; bm7 19:14 Follow up: Response: No adverse reaction kd3 16:48 Drug: morphine 4 mg Route: IVP; Infused Over: 4 mins; Site: right antecubital; bm7 18:51 Follow up: Response: No adverse reaction bp 19:13 Follow up: Response: No adverse reaction kd3 16:49 Drug: Zofran (Ondansetron) 4 mg Route: IVP; Site: right antecubital; bm7 19:13 Follow up: Response: No adverse reaction kd3 19:03 Drug: Rocephin (cefTRIAXone) 1 grams Route: IV; Rate: calculated rate; Site: right bp antecubital; 19:13 Follow up: Response: No adverse reaction kd3 19:28 Follow up: Response: No adverse reaction; IV Status: Completed infusion kd3 Medication: 17:30 VIS not applicable for this client. bp Outcome: 19:12 Discharge ordered by MD. cp 19:27 Discharged to home ambulatory. kd3 19:27 Condition: stable 19:27 Discharge instructions given to patient, Instructed on discharge instructions, follow up and referral plans. medication usage, Demonstrated understanding of instructions, follow-up care, medications, Prescriptions given X 3. 19:28 Patient left the ED. kd3 Signatures: Dispatcher [employer] EDCA Chely Murphy Omari No PA PA cp Baxter, Heather RN Nathen Davenport RN RN bp Malia Shine, MEET DSOUZA bm7 Codi Holcomb RN RN kd3 Corrections: (The following items were deleted from the chart) 16:11 16:09 Chief complaint: Severe upper abdominal pain and nausea x 2 hours. Hx of hb cholecystitis. hb
[2021-11-30 19:25] LABS: Urine Blood Trace-intact (Negative); Urine Glucose Negative (Negative); Urine Protein Negative (Negative)
[2021-11-30 19:57] LABS: Urine Bacteria <20 /HPF (<20); Urine RBC <5 /HPF (None Seen)
[2021-11-30 20:03] VITALS: TEMP 98.7
[2021-11-30 20:06] VITALS: BP 130/88; O2SAT 97
== END 2021-11-30 19:28 | disposition home or self-care (01) ==
LOC: ER 15:50
DX: K80.80 Other cholelithiasis without obstruction (principal); R10.10 Upper abdominal pain, unspecified; R11.0 Nausea; K81.9 Cholecystitis, unspecified
CPT/HCPCS: 85025; 36415; 83690; 80053; 74177; 71045; 76705; Q9967; J7030; J2405; J3490; 81003; 81015

== ENCOUNTER 2021-12-24 07:04 | Day surgery (SDC) | payer OTHER ==
[2021-12-21 12:58] LABS: SARS-CoV-2 Antigen Rapid Res Negative (Negative)
--- NOTE | 2021-12-22 07:55 | EKG ---
Test Date: 2021-12-21 Test Time: 12:35:41 Granite Cutter Apprentice: ANNMARIE MEASUREMENT RESULTS: Intervals: Rate: 66 FL: 170 QRSD: 80 QT: 360 QTc: 377 [place]: P: 30 FL: 170 QRS: 24 T: 21 INTERPRETIVE STATEMENTS: Normal sinus rhythm Septal infarct, age undetermined Abnormal ECG Compared to ECG 09/19/2017 03:53:29 Myocardial infarct finding now present Sinus bradycardia no longer present Electronically Signed On 12-22-21 07:52:41 CDT by Marcelino Hinojosa
[2021-12-24] MEDS ORDERED: Ringers Lactate 1,000 ML IV ONE ×2 (07:25→10:07)
[2021-12-24] MEDS ORDERED: CEFOXITIN SODIUM 1 GM/VIAL ONE (07:25)
[2021-12-24] MEDS ORDERED: SCOPOLAMINE HYDROBROMIDE PATCH TD ONE ×2 (07:59→08:00)
[2021-12-24] MEDS ORDERED: CELECOXIB 100 MG CAPSULE PO ONE (08:00)
[2021-12-24] MEDS ORDERED: ACETAMINOPHEN 500 MG TAB PO ONE (08:00)
[2021-12-24] MEDS ORDERED: CELECOXIB 100 MG CAPSULE ONE (08:11)
[2021-12-24] MEDS ORDERED: ACETAMINOPHEN 500 MG TAB ONE (08:12)
[2021-12-24] MEDS ORDERED: BUPIVACAINE 0.25% PF 10 ML VIAL ONE (08:20)
[2021-12-24] MEDS ORDERED: propofoL 200 MG/20 ML VIAL IV ONE (08:38)
[2021-12-24] MEDS ORDERED: dexAMETHasone 10 MG/ML VIAL ONE (08:39)
[2021-12-24] MEDS ORDERED: ONDANSETRON 4 MG/2 ML VIAL ONE (08:39)
[2021-12-24] MEDS ORDERED: FENTANYL CITR 100 MCG/2 ML ONE (08:39)
[2021-12-24] MEDS ORDERED: MIDAZOLAM HCL 2 MG/2 ML INJ ONE (08:39)
[2021-12-24] MEDS ORDERED: ROCURONIUM 50 MG/5 ML VIAL IV ONE (08:48)
[2021-12-24] MEDS ORDERED: KETOROLAC 30 MG/ML INJ ONE (09:09)
[2021-12-24] MEDS ORDERED: EPHEDRINE SULF 50 MG/ML VIAL ONE (09:30)
--- NOTE | 2021-12-24 10:02 | P.OP ---
Preoperative diagnosis: Chronic cholecystitis with Cholelithiasis Postoperative diagnosis: Chronic cholecystitis with Cholelithiasis Primary procedure: Laparoscopic cholecystectomy with ICG Cholangiography Secondary procedure: Primary Repair of Umbilical Hernia Anesthesia: GETA + Local Estimated blood loss: <10cc Specimen: Gallbladder Findings: Distended GB, short cystic duct, umbilical hernia Complications: None Transferred to: Recovery Room Condition: Good
[2021-12-24] MEDS ORDERED: HYDROCODONE/APAP 10/325 TAB ONE (11:13)
[2021-12-24 12:58] VITALS: BP 137/72; TEMP 97.3; O2SAT 99
--- NOTE | 2021-12-24 21:30 | OP ---
Date of Procedure: 12/24/2021 Surgeon: Audi Thompson MD, Preoperative Diagnosis: Chronic cholecystitis with cholelithiasis. Postoperative Diagnosis: Chronic cholecystitis with cholelithiasis. Procedures Performed: 1.Laparoscopic cholecystectomy with indocyanine green (ICG) cholangiography. 2.Primary repair of umbilical hernia. Anesthesia: General endotracheal plus local with 0.25% Marcaine with epinephrine. Estimated Blood Loss: Less than 10 mL. Specimens: Gallbladder. Findings: 1.Distended gallbladder. 2.Short cystic duct. 3.Small fat containing umbilical hernia with preperitoneal fat. Complications: None. Disposition And Condition: The patient was transferred to recovery room in good condition. Procedure In Detail: After informed was obtained, the patient was brought to the operating room, pre pped and draped in the usual sterile fashion. After adequate anesthesia was achieved, a supraumbilic al area was anesthetized with 0.25% Marcaine, sharply incised. A 5 mm trocar was placed under direct vision without evidence of complication. Insufflation was obtained to 15 mmHg at this time. There was no injury to vital structures upon entry in the abdomen. Two additional trocars were placed; one in the epigastrium and one in the right upper quadrant. Both of these areas were similarly anesthet ized and sharply incised. A 5 mm trocar was placed under direct visualization without evidence of co mplication. The umbilical trocar was then upsized to a 12 mm under direct visualization without evid ence of complication. The patient was positioned head up, right-side up position. Ratcheted grasper was used to grasp the patient's gallbladder and placed towards the patient's right shoulder. It was found to be quite distended at this point. ICG cholangiography confirmed the anatomy described as a short cystic duct with a visualized common duct, cystic duct confluence. The structures were skelet onized, identified as both the cystic duct and cystic artery. This cystic artery had a small accesso ry branch of the anterior surface. This was clipped. Both of these structures identified and the cy stic duct and cystic artery were clipped doubly on the proximal side and singly on the distal side an d after critical view of safety was ensured at this point, the structures were ligated using Endo She ars. At this point, the gallbladder was removed from the hepatic fossa without evidence of complicat ion using electrocautery. The gallbladder was then placed in EndoCatch bag and there was no spillage of bile throughout the procedure. The gallbladder was removed from the umbilical trocar, sent off f or pathologic examination. The abdomen was then re-insufflated at this point. The liver bed had min imal fulguration performed at this point as there was a minimal hemostatic maneuvers required at the midportion of the hepatic fossa. This was easily controlled with electrocautery. The area was copio usly irrigated and suctioned out completely dry. There was no additional hemostatic maneuvers requir ed at the end of the procedure and the abdomen was checked under desufflation pressure without any ev idence of further bleeding or any other leakage of bile or change in clip position. At this point, t he patient was positioned back in a neutral position. Remaining effluent was suctioned out. I inspe cted the umbilical hernia area and using a Thomas-Froilan suture passer through the umbilical trocar site, I then placed 0 Vicryl suture in a [id number] to close the hernia defect. At this point with good apposition of the tissues, I then used a Thomas-Froilan to close the umbilical trocar site using 0 Vicryl in an interrupted fashion with good apposition of the tissues as well. The abdomen w as completely desufflated under direct visualization without any evidence of complication. Remaining trocars were removed. All skin incisions were copiously irrigated and closed with 4-0 Monocryl in a running fashion. Dermabond was placed over top. The patient tolerated the procedure without any evidence of complication and transferred to PACU in good condition. All counts were correct at the end of the case. SHARRI/HOLDEN Voice ID: [id number] Report ID: [id number]
== END 2021-12-24 11:22 | disposition home or self-care (01) ==
LOC: OR 07:04
PROVIDERS: ATTEND Surgery
PROC: BF13YZZ Fluoroscopy of Gallbladder and Bile Ducts using Other Contrast (ICD-10-PCS; 2021-12-24)
PROC: 0FT44ZZ Resection of Gallbladder, Percutaneous Endoscopic Approach (ICD-10-PCS; principal; 2021-12-24 09:15)
DX: K80.10 Calculus of gallbladder with chronic cholecystitis without obstruction (principal); I10 Essential (primary) hypertension; M10.9 Gout, unspecified; K42.9 Umbilical hernia without obstruction or gangrene; E78.00 Pure hypercholesterolemia, unspecified; Z20.822 Contact with and (suspected) exposure to COVID-19
CPT/HCPCS: 93005; 36415; 88304; 87811; 47563; J2704; J2250; J3010; J1100; J7120 ×2; J0694; J2405